=== PATIENT | female | born 1975 | race Hispanic/Latino ===

== ENCOUNTER 2018-03-20 15:38 | Observation (INO) | payer OTHER ==
[2018-03-20 15:38] VITALS: BMI 22.8
[2018-03-20 15:50] VITALS: O2SAT 99
[2018-03-20] MEDS ORDERED: Sodium Chloride 0.9% 1,000 ML IV STA (16:37)
[2018-03-20 16:47] LABS: BASO % 0.6 % (0.0-2.0); EOS # 0.1 K/uL (0.0-0.7); EOS % 1.6 % (0.0-4.0); HEMOGLOBIN 11.7 g/dL (12.0-16.0); LYMPH % 14.7 % (20.0-40.0); MEAN CELL VOLUME 92.9 fl (81.0-99.0); MEAN CORPUSCULAR HEMOGLOBIN 30.9 pg (27.0-31.0); MEAN CORPUSCULAR HGB CONC 33.3 g/dL (33.0-37.0); MEAN PLATELET VOLUME 8.6 fl (7.2-11.7); MONO # 0.6 K/uL (0.0-0.8); NEUT # 4.8 K/uL (1.8-7.0); NEUT % 74.1 % (50.0-75.0); RBC 3.8 Mil/uL (3.80-5.20); WHITE BLOOD COUNT 6.5 K/uL (4.8-10.8)
[2018-03-20 16:49] LABS: SQUAMOUS EPITHIAL 15 /hpf (0-5); URINE BACTERIA RARE (<OCC); URINE BILIRUBIN NEGATIVE (NEGATIVE); URINE BLOOD NEGATIVE (NEGATIVE); URINE CLARITY CLOUDY (Clear); URINE COLOR YELLOW (YELLOW); URINE GLUCOSE (UA) NEG (Normal); URINE LEUKOCYTE ESTERASE NEG Leu/uL (Negative); URINE PROTEIN 30 mg/dL (NEGATIVE); URINE UROBILINOGEN 0.2-1.0 mg/dL (0.2-1.0)
[2018-03-20 16:54] LABS: HCG,QUALITATIVE URINE NEGATIVE (NEGATIVE)
[2018-03-20 16:56] LABS: ALB/GLOB RATIO 1.6 (1.0-2.1); ALBUMIN 3.9 g/dL (3.5-5.0); ALT/SGPT 22 U/L (9-52); AST/SGOT 17 U/L (14-36); BLOOD UREA NITROGEN 7 mg/dl (7-17); CALCIUM 9.1 mg/dL (8.4-10.2); GFR NON-AFRICAN AMERICAN > 60; LIPASE 166 U/L (23-300)
[2018-03-20 16:57] LABS: VENOUS BLOOD GAS BASE EXCESS -0.3 mmol/L (0.0-2.0); VENOUS BLOOD GAS PCO2 38 mmHg (40-60); VENOUS BLOOD GAS PO2 30 mm/Hg (30-55); VENOUS BLOOD PH 7.41 (7.32-7.43)
[2018-03-20 17:01] LABS: INR 0.9; PROTHROMBIN TIME 10.3 Seconds (9.8-13.1)
[2018-03-20 17:03] LABS: PARTIAL THROMBOPLASTIN TIME 29.3 Seconds (25.6-37.1)
--- NOTE | 2018-03-20 18:04 | ED PDOC ---
HPI: Abdomen Time Seen by Provider: 03/20/18 16:36 Chief Complaint (Nursing): Abdominal Pain Chief Complaint (Provider): abdominal pain History Per: Patient History/Exam Limitations: no limitations Onset/Duration Of Symptoms: Hrs (today) Current Symptoms Are (Timing): Still Present Associated Symptoms: Chills, Nausea, Vomiting Additional Complaint(s): Radha Live is a 42 year old female, with no significant past medical history, who presents to the emergency department complaining of a worsening abdominal pain associated with vomiting. Patient states symptoms have lasted 10 days. She went to see her PMD at Dr. Heath at [facility] and went for an outpatient CT. She states she has not received the results yet. She is unable to keep anything down and states the worsening pain is located on right side. Patient reports feeling chills but is unsure if she has a fever. She denies any other medical complaints. LMP beginning of February. PDM: Roberto Heath Past Medical History Reviewed: Historical Data, Nursing Documentation, Vital Signs Vital Signs: Last Vital Signs Temp 97.9 F 03/21/18 16:10 Pulse 68 03/21/18 16:10 Resp 18 03/21/18 16:10 BP 117/75 03/21/18 16:10 Pulse Ox 99 03/21/18 16:10 - Medical History PMH: No Chronic Diseases - Surgical History Surgical History: No Surg Hx - Family History Family History: States: Unknown Family Hx - Home Medications Home Medications: Ambulatory Orders Medication Instructions Recorded No Known Home Med 03/20/18 - Allergies Allergies/Adverse Reactions: Allergies Allergy/AdvReac Type Severity Reaction Status Date / Time No Known Allergies Allergy Verified 03/20/18 15:48 Review of Systems ROS Statement: Except As Marked, All Systems Reviewed And Found Negative Constitutional: Positive for: Chills. Negative for: Fever Gastrointestinal: Positive for: Nausea, Vomiting, Abdominal Pain Physical Exam - Reviewed Nursing Documentation Reviewed: Yes Vital Signs Reviewed: Yes - Physical Exam Appears: Positive for: No Acute Distress Head Exam: Positive for: ATRAUMATIC, NORMAL INSPECTION, NORMOCEPHALIC Skin: Positive for: Normal Color, Warm, Dry Eye Exam: Positive for: Normal appearance, EOMI, PERRL Neck: Positive for: Painless ROM Cardiovascular/Chest: Positive for: Regular Rate, Rhythm. Negative for: Murmur Respiratory: Positive for: Normal Breath Sounds. Negative for: Respiratory Distress Gastrointestinal/Abdominal: Positive for: Tenderness (mild tenderness to palpation of RUQ) Back: Positive for: Normal Inspection. Negative for: L CVA Tenderness, R CVA Tenderness Extremity: Positive for: Normal ROM (upper and lower extremities). Negative for : Deformity, Swelling Neurologic/Psych: Positive for: Alert, Oriented. Negative for: Motor/Sensory Deficits - Laboratory Results Result Diagrams: 03/20/18 16:39 03/21/18 06:30 - ECG O2 Sat by Pulse Oximetry: 99 (RA) Pulse Ox Interpretation: Normal Medical Decision Making Medical Decision Making: Time: 16:36 Initial Impression: Work up for abdominal infection. Gastroenteritis vs cholecystitis. Will give Zofran, morphine, IV fluids and reassess patient. Initial Plan: --VBG --EKG --CMP --Lipase --CBC w/ differential --PTT --PT --Morphine 2 mg IVP --Sodium Chloride 1,000 ml IV 1,000 mls/hr --Zofran Inj 4 mg IVP --Urinalysis --Reevaluation 18:35 -Contacted Dr. Oconnor to see if he could access CT results from outpatient radiology as ordered through the [facility] system. He looked and there was no results. -Patient reports mild improvement with 2nd dose of morphine. Ordered acute abdominal ultrasound. ----- Scribe Attestation: Documented by George De La Torre, acting as a scribe for Mariah Vila MD. Provider Scribe Attestation: All medical record entries made by the Scribe were at my direction and personally dictated by me. I have reviewed the chart and agree that the record accurately reflects my personal performance of the history, physical exam, medical decision making, and the department course for this patient. I have also personally directed, reviewed, and agree with the discharge instructions and disposition. Disposition - Clinical Impression Clinical Impression: Abdominal pain - Disposition Disposition: Transfer of Care Disposition Time: 19:00 (Signed out to Dr. Phelps pending US results.) Condition: FAIR
[2018-03-20] MEDS ORDERED: Potassium CL 10 MEQ/50 ML 50 ML IVPB STA (18:40)
[2018-03-20] MEDS ORDERED: Potassium CL 10 MEQ/50 ML 50 ML ONE (19:00)
--- NOTE | 2018-03-20 19:33 | ED PDOC ---
- Laboratory Results Result Diagrams: 03/20/18 16:39 03/20/18 16:39 - ECG O2 Sat by Pulse Oximetry: 99 (RA) Medical Decision Making Medical Decision Makin:00 -Patient endorsed to provider by Dr. Vila, pending ultrasound. 17:41 Abdomen Ultrasound FINDINGS: Liver: There is borderline hepatomegaly with liver length is 16.8 cm. The hepatic parenchyma is mildly echogenic possibly due to diffuse fatty liver. Gallbladder: Normal. No gallstones. There is not gallbladder wall thickening. Negative sonographic Burk's sign. Common bile duct: Normal. No stones. No dilation. Pancreas: Normal. No ductal dilation. Kidneys: Normal. No mass. No hydronephrosis. Spleen: Normal. No splenomegaly. Stomach: In the area of pain in the epigastric region the stomach is visualized and there appears to be significant gastric wall thickening, cannot exclude gastritis. Aorta: Normal. No aneurysm. Inferior vena cava: Normal. IMPRESSION: In the area of pain in the epigastric region the stomach is visualized and there appears to be significant gastric wall thickening, cannot exclude gastritis. 21:50 -Patient treated with IV protonix with no improvement of symptoms. Patient still reports a persistent abdominal pain. Pt. will be placed in observation, referred to Dr. Oconnor. Diagnosis of intractable abdominal pain and gastritis Disposition Discussed With : Mayco Martinez - Clinical Impression Clinical Impression: Abdominal pain - POA Present On Arrival: None - Disposition Disposition: Hospitalized as Observation Patient Disposition Time: 21:50 Condition: FAIR
[2018-03-20] MEDS ORDERED: Sucralfate 1 gm/10 ml Oral Susp UD PO STA (20:11)
[2018-03-20] MEDS ORDERED: Sucralfate 1 gm/10 ml Oral Susp UD ONE ×2 (20:21→20:38)
[2018-03-20] MEDS: Dextrose 5%/0.45% NS 1,000 ML IV SCH (21:56)
[2018-03-21] MEDS: Dextrose 5%/0.45% NS 1,000 ML IV SCH ×2 (05:46→12:00)
[2018-03-21 07:40] LABS: ALB/GLOB RATIO 1.4 (1.0-2.1); ALBUMIN 3.1 g/dL (3.5-5.0); ALT/SGPT 15 U/L (9-52); AST/SGOT 16 U/L (14-36); BLOOD UREA NITROGEN 3 mg/dl (7-17); CALCIUM 8.7 mg/dL (8.4-10.2); GFR NON-AFRICAN AMERICAN > 60
[2018-03-21] MEDS: Sucralfate 1 gm/10 ml Oral Susp UD PO SCH ×3 (09:10→16:16)
--- NOTE | 2018-03-21 09:35 | US ---
Date of service: 03/20/2018 HISTORY: diffuse abd pain. worse RUQ and flanks BL COMPARISON: None. TECHNIQUE: Sonographic evaluation of the abdomen. FINDINGS: LIVER: Measures cm. Normal echogenicity of the liver parenchyma. No mass. No intrahepatic bile duct dilatation. GALLBLADDER: Unremarkable. No gallstones. COMMON BILE DUCT: Measures mm. No stones. No dilatation. PANCREAS: Unremarkable as visualized. No mass. No ductal dilatation. RIGHT KIDNEY: Measures cm. Normal echogenicity. No calculus, mass, or hydronephrosis. LEFT KIDNEY: Measures cm. Normal echogenicity. No calculus, mass, or hydronephrosis. SPLEEN: Normal in size and contour. No mass. AORTA: No aneurysmal dilatation. IVC: Unremarkable. OTHER FINDINGS: Question gastric wall thickening. Correlate for gastritis. IMPRESSION: Question gastric wall thickening. Correlate for gastritis.
--- NOTE | 2018-03-21 12:56 | CP.PCM.HP ---
History of Present Illness - History of Present Illness History of Present Illness: Radha Live is a 42 year old female, with no significant past medical history, who presents to the emergency department complaining of a worsening abdominal pain associated with vomiting. Patient states symptoms have lasted 10 days. She went to see her PMD at Dr. Heath at [place] [facility] [address] and went for an outpatient CT. She states she has not received the results yet. She is unable to keep anything down and states the worsening pain is located on right side. Patient reports feeling chills but is unsure if she has a fever. She denies any other medical complaints. LMP beginning of February. Present on Admission - Present on Admission Any Indicators Present on Admission: No Review of Systems - Constitutional Constitutional: absent: As Per HPI, Anorexia, Chills, Daytime Sleepiness, Excessive Sweating, Fatigue, Fever, Frequent Falls, Headache, Increased Appetite , Lethargy, Malaise, Night Sweats, Snoring, Sleep Apnea, Weight Gain, Weight Loss, Weakness, Other - EENT Eyes: absent: As Per HPI, Blind Spots, Blurred Vision, Change in Vision, Decreased Night Vision, Diplopia, Discharge, Dry Eye, Exophthalmos, Floaters, Irritation, Itchy Eyes, Loss of Peripheral Vision, Pain, Photophobia, Requires Corrective Lenses, Sees Flashes, Spots in Vision, Tunnel Vision, Other Visual Disturbances, Loss of Vision, Other - Cardiovascular Cardiovascular: absent: As Per HPI, Acrocyanosis, Chest Pain, Chest Pain at Rest , Chest Pain with Activity, Claudication, Diaphoresis, Dyspnea, Dyspnea on Exertion, Edema, Irregular Heart Rhythm, Pain Radiating to Arm/Neck/Jaw, Leg Edema, Leg Ulcers, Lightheadedness, Orthopnea, Palpitations, Paroxysmal Nocturnal Dyspnea, Pedal Edema, Radiating Pain, Rapid Heart Rate, Slow Heart Rate, Syncope, Other - Respiratory Respiratory: absent: As Per HPI, Cough, Dyspnea, Hemoptysis, Dyspnea on Exertion , Wheezing, Snoring, Stridor, Pain on Inspiration, Chest Congestion, Excessive Mucous Production, Change in Mucous Color, Pain with Coughing, Other - Gastrointestinal Gastrointestinal: Abdominal Pain, Vomiting - Musculoskeletal Musculoskeletal: absent: As Per HPI, Abnormal Gait, Arthralgias, Atrophy, Back Pain, Deformity, Joint Swelling, Limited Range of Motion, Loss of Height, Muscle Cramps, Muscle Weakness, Myalgias, Neck Pain, Numbness, Radiating Pain into Limb, Stiffness, Tingling, Other - Neurological Neurological: absent: As Per HPI, Abnormal Gait, Abnormal Hearing, Abnormal Movements, Abnormal Speech, Behavioral Changes, Burning Sensations, Confusion, Convulsions, Disequilibrium, Dizziness, Numbness, Focal Weakness, Frequent Falls , Headaches, Lack of Coordination, Loss of Vision, Memory Loss, Paresthesias, Radicular Pain, Restless Legs, Sensory Deficit, Syncope, Tingling, Tremor, Vertigo, Weakness, Other Visual Disturbances, Other Past Patient History - Past Medical History & Family History Past Medical History?: Yes - Past Social History Smoking Status: Never Smoked - CARDIAC Hx Cardiac Disorders: No - PULMONARY Hx Respiratory Disorders: No - NEUROLOGICAL Hx Neurological Disorder: No - HEENT Hx HEENT Problems: No - RENAL Hx Chronic Kidney Disease: No - ENDOCRINE/METABOLIC Hx Endocrine Disorders: No - HEMATOLOGICAL/ONCOLOGICAL Hx Blood Disorders: No Hx AIDS: No Hx Human Immunodeficiency Virus (HIV): No - INTEGUMENTARY Hx Dermatological Problems: No - MUSCULOSKELETAL/RHEUMATOLOGICAL Hx Musculoskeletal Disorders: No Hx Falls: No - GASTROINTESTINAL Hx Gastrointestinal Disorders: Yes Hx Nausea: Yes Hx Vomiting: Yes - GENITOURINARY/GYNECOLOGICAL Hx Genitourinary Disorders: Yes () - PSYCHIATRIC Hx Psychophysiologic Disorder: Yes (post depression) Hx Substance Use: No - SURGICAL HISTORY Hx Surgeries: Yes Hx Section: Yes - ANESTHESIA Hx Anesthesia: Yes Hx Anesthesia Reactions: No Hx Malignant Hyperthermia: No Meds Allergies/Adverse Reactions: Allergies Allergy/AdvReac Type Severity Reaction Status Date / Time No Known Allergies Allergy Verified 03/20/18 15:48 Physical Exam - Head Exam Head Exam: NORMAL INSPECTION - Eye Exam Eye Exam: EOMI Pupil Exam: NORMAL ACCOMODATION - ENT Exam ENT Exam: Mucous Membranes Moist - Respiratory Exam Respiratory Exam: Clear to Auscultation Bilateral, NORMAL BREATHING PATTERN - Cardiovascular Exam Cardiovascular Exam: REGULAR RHYTHM, +S1, +S2 - GI/Abdominal Exam GI & Abdominal Exam: Normal Bowel Sounds, Soft - Neurological Exam Neurological exam: Alert, Oriented x3 Results - Vital Signs Recent Vital Signs: Last Vital Signs Temp 99.0 F 03/21/18 07:40 Pulse 70 03/21/18 07:40 Resp 19 03/21/18 07:40 BP 107/72 03/21/18 07:40 Pulse Ox 99 09/02/18 07:40 - Labs Result Diagrams: 03/20/18 16:39 03/21/18 06:30 Labs: Laboratory Results - last 24 hr 03/20/18 03/20/18 03/20/18 16:39 16:39 16:39 WBC 6.5 RBC 3.80 Hgb 11.7 L Hct 35.3 MCV 92.9 D MCH 30.9 MCHC 33.3 RDW 13.0 Plt Count 196 MPV 8.6 Neut % (Auto) 74.1 Lymph % (Auto) 14.7 L [place] % (Auto) 9.0 Eos % (Auto) 1.6 Baso % (Auto) 0.6 Neut # (Auto) 4.8 Lymph # (Auto) 1.0 [place] # (Auto) 0.6 Eos # (Auto) 0.1 Baso # (Auto) 0.0 PT INR APTT pO2 VBG pH VBG pCO2 VBG HCO3 VBG Total CO2 VBG O2 Sat (Calc) VBG Base Excess VBG Potassium Glucose Lactate FiO2 Crit Value Called To Crit Value Called By Crit Value Read Back Blood Gas Notified Time Sodium 136 Potassium 3.5 L Chloride 101 Carbon Dioxide 28 Anion Gap 11 BUN 7 Creatinine 0.7 Est GFR ( Amer) > 60 Est GFR (Non-Af Amer) > 60 Random Glucose 105 Calcium 9.1 Total Bilirubin 0.2 AST 17 ALT 22 Alkaline Phosphatase 46 Total Protein 6.4 Albumin 3.9 Globulin 2.5 Albumin/Globulin Ratio 1.6 Lipase 166 Venous Blood Potassium Urine Color Yellow Urine Clarity Cloudy Urine pH 6.0 Ur Specific [place] 1.031 H Urine Protein 30 Urine Glucose (UA) Neg Urine Ketones Negative Urine Blood Negative Urine Nitrate Negative Urine Bilirubin Negative Urine Urobilinogen 0.2-1.0 Ur Leukocyte Esterase Neg Urine RBC (Auto) 2 Urine Microscopic WBC 3 Ur Squamous Epith Cells 15 H Urine Bacteria Rare Urine HCG, Qual Negative 03/20/18 03/20/18 03/21/18 16:39 16:49 06:30 WBC RBC Hgb Hct MCV MCH MCHC RDW Plt Count MPV Neut % (Auto) Lymph % (Auto) [place] % (Auto) Eos % (Auto) Baso % (Auto) Neut # (Auto) Lymph # (Auto) [place] # (Auto) Eos # (Auto) Baso # (Auto) PT 10.3 INR 0.9 APTT 29.3 pO2 30 VBG pH 7.41 VBG pCO2 38 L VBG HCO3 23.6 VBG Total CO2 25.3 VBG O2 Sat (Calc) 63.6 VBG Base Excess -0.3 L VBG Potassium 2.5 L* Glucose 88 Lactate 0.4 L FiO2 21.0 Crit Value Called To magui Vila md Crit Value Called By Modesta pace Crit Value Read Back Y Blood Gas Notified Time 1657 Sodium 138.0 140 Potassium 3.7 Chloride 109.0 H 107 Carbon Dioxide 28 Anion Gap 9 L BUN 3 L Creatinine 0.7 Est GFR ( Amer) > 60 Est GFR (Non-Af Amer) > 60 Random Glucose 102 Calcium 8.7 Total Bilirubin 0.1 L AST 16 ALT 15 Alkaline Phosphatase 37 L Total Protein 5.3 L Albumin 3.1 L D Globulin 2.2 Albumin/Globulin Ratio 1.4 Lipase Venous Blood Potassium 2.5 L* Urine Color Urine Clarity Urine pH Ur Specific [place] Urine Protein Urine Glucose (UA) Urine Ketones Urine Blood Urine Nitrate Urine Bilirubin Urine Urobilinogen Ur Leukocyte Esterase Urine RBC (Auto) Urine Microscopic WBC Ur Squamous Epith Cells Urine Bacteria Urine HCG, Qual Assessment & Plan - Assessment and Plan (Free Text) Assessment: intractable vomiting/abdominal pain Plan: intractable vomiting/abd pain pain has improved no nausea advance diet cont carafate/zofran
--- NOTE | 2018-03-21 12:58 | CP.PCM.DIS ---
Provider - Provider Date of Admission: 03/20/18 21:42 Attending physician: MD catia Solis MD Time Spent in preparation of Discharge (in minutes): 30 Diagnosis - Discharge Diagnosis (1) Vomiting Status: Acute Hospital Course - Lab Results Lab Results: Most Recent Lab Values WBC 6.5 K/uL (4.8-10.8) 03/20/18 16:39 RBC 3.80 Mil/uL (3.80-5.20) 03/20/18 16:39 Hgb 11.7 g/dL (12.0-16.0) L 03/20/18 16:39 Hct 35.3 % (34.0-47.0) 03/20/18 16:39 MCV 92.9 fl (81.0-99.0) D 03/20/18 16:39 MCH 30.9 pg (27.0-31.0) 03/20/18 16:39 MCHC 33.3 g/dL (33.0-37.0) 03/20/18 16:39 RDW 13.0 % (11.5-14.5) 03/20/18 16:39 Plt Count 196 K/uL (130-400) 03/20/18 16:39 MPV 8.6 fl (7.2-11.7) 03/20/18 16:39 Neut % (Auto) 74.1 % (50.0-75.0) 03/20/18 16:39 Lymph % (Auto) 14.7 % (20.0-40.0) L 03/20/18 16:39 [place] % (Auto) 9.0 % (0.0-10.0) 03/20/18 16:39 Eos % (Auto) 1.6 % (0.0-4.0) 03/20/18 16:39 Baso % (Auto) 0.6 % (0.0-2.0) 03/20/18 16:39 Neut # (Auto) 4.8 K/uL (1.8-7.0) 03/20/18 16:39 Lymph # (Auto) 1.0 K/uL (1.0-4.3) 03/20/18 16:39 [place] # (Auto) 0.6 K/uL (0.0-0.8) 03/20/18 16:39 Eos # (Auto) 0.1 K/uL (0.0-0.7) 03/20/18 16:39 Baso # (Auto) 0.0 K/uL (0.0-0.2) 03/20/18 16:39 PT 10.3 Seconds (9.8-13.1) 03/20/18 16:39 INR 0.9 03/20/18 16:39 APTT 29.3 Seconds (25.6-37.1) 03/20/18 16:39 pO2 30 mm/Hg (30-55) 03/20/18 16:49 VBG pH 7.41 (7.32-7.43) 03/20/18 16:49 VBG pCO2 38 mmHg (40-60) L 03/20/18 16:49 VBG HCO3 23.6 mmol/L 03/20/18 16:49 VBG Total CO2 25.3 mmol/L (22-28) 03/20/18 16:49 VBG O2 Sat (Calc) 63.6 % (40-65) 03/20/18 16:49 VBG Base Excess -0.3 mmol/L (0.0-2.0) L 03/20/18 16:49 VBG Potassium 2.5 mmol/L (3.6-5.2) L* 03/20/18 16:49 Sodium 138.0 mmol/L (132-148) 03/20/18 16:49 Chloride 109.0 mmol/L (98-107) H 03/20/18 16:49 Glucose 88 mg/dL (65-105) 03/20/18 16:49 Lactate 0.4 mmol/L (0.7-2.1) L 03/20/18 16:49 FiO2 21.0 % 03/20/18 16:49 Crit Value Called To magui Vila md 03/20/18 16:49 Crit Value Called By Modesta pace 03/20/18 16:49 Crit Value Read Back Y 03/20/18 16:49 Blood Gas Notified Time 4850 03/20/18 16:49 Sodium 140 mmol/l (132-148) 03/21/18 06:30 Potassium 3.7 MMOL/L (3.6-5.0) 03/21/18 06:30 Chloride 107 mmol/L (98-107) 03/21/18 06:30 Carbon Dioxide 28 mmol/L (22-30) 03/21/18 06:30 Anion Gap 9 (10-20) L 03/21/18 06:30 BUN 3 mg/dl (7-17) L 03/21/18 06:30 Creatinine 0.7 mg/dl (0.7-1.2) 03/21/18 06:30 Est GFR ( Amer) > 60 03/21/18 06:30 Est GFR (Non-Af Amer) > 60 03/21/18 06:30 Random Glucose 102 mg/dL (65-105) 03/21/18 06:30 Calcium 8.7 mg/dL (8.4-10.2) 03/21/18 06:30 Total Bilirubin 0.1 mg/dl (0.2-1.3) L 03/21/18 06:30 AST 16 U/L (14-36) 03/21/18 06:30 ALT 15 U/L (9-52) 03/21/18 06:30 Alkaline Phosphatase 37 U/L (38-126) L 03/21/18 06:30 Total Protein 5.3 G/DL (6.3-8.2) L 03/21/18 06:30 Albumin 3.1 g/dL (3.5-5.0) L D 03/21/18 06:30 Globulin 2.2 gm/dL (2.2-3.9) 03/21/18 06:30 Albumin/Globulin Ratio 1.4 (1.0-2.1) 03/21/18 06:30 Lipase 166 U/L (23-300) 03/20/18 16:39 Venous Blood Potassium 2.5 mmol/L (3.6-5.2) L* 03/20/18 16:49 Urine Color Yellow (YELLOW) 03/20/18 16:39 Urine Clarity Cloudy (Clear) 03/20/18 16:39 Urine pH 6.0 (5.0-8.0) 03/20/18 16:39 Ur Specific [place] 1.031 (1.003-1.030) H 03/20/18 16:39 Urine Protein 30 mg/dL (NEGATIVE) 03/20/18 16:39 Urine Glucose (UA) Neg mg/dL (Normal) 03/20/18 16:39 Urine Ketones Negative mg/dL (NEGATIVE) 03/20/18 16:39 Urine Blood Negative (NEGATIVE) 03/20/18 16:39 Urine Nitrate Negative (NEGATIVE) 03/20/18 16:39 Urine Bilirubin Negative (NEGATIVE) 03/20/18 16:39 Urine Urobilinogen 0.2-1.0 mg/dL (0.2-1.0) 03/20/18 16:39 Ur Leukocyte Esterase Neg [place]/uL (Negative) 03/20/18 16:39 Urine RBC (Auto) 2 /hpf (0-3) 03/20/18 16:39 Urine Microscopic WBC 3 /hpf (0-5) 03/20/18 16:39 Ur Squamous Epith Cells 15 /hpf (0-5) H 03/20/18 16:39 Urine Bacteria Rare (<OCC) 03/20/18 16:39 Urine HCG, Qual Negative (NEGATIVE) 03/20/18 16:39 Discharge Exam - Head Exam Head Exam: NORMAL INSPECTION - ENT Exam ENT Exam: Mucous Membranes Moist - Respiratory Exam Respiratory Exam: Clear to PA & Lateral, NORMAL BREATHING PATTERN - Cardiovascular Exam Cardiovascular Exam: REGULAR RHYTHM, +S1, +S2 - GI/Abdominal Exam GI & Abdominal Exam: Normal Bowel Sounds, Soft - Neurological Exam Neurological exam: Alert, Oriented x3 Discharge Plan - Follow Up Plan Condition: FAIR Disposition: HOME/ ROUTINE Instructions: Acute Abdominal Pain (DC), Acute Abdominal Pain (GEN) Additional Instructions: abdominal pain/vomiting d/c home cont maalox/carafate f/u pmd in 2 days
[2018-03-21 16:10] VITALS: BP 117/75; PULSE 68; RESP 18; TEMP 97.9
--- NOTE | 2018-03-21 17:51 | CARD ---
APPROVED REPORT Date of service: 03/20/2018 EKG Measurement Heart [id number] <Conclusion> Sinus bradycardia Possible Left atrial enlargement Left ventricular hypertrophy with repolarization abnormality Abnormal ECG
== END 2018-03-21 18:49 | disposition home or self-care (01) ==
LOC: H.ER 15:38 → H.ERHOLD 21:42 → H.MEDSURG1 23:08
PROVIDERS: ADMIT Family Medicine; ATTEND Family Medicine
DX: R11.10 Vomiting, unspecified (principal); F45.9 Somatoform disorder, unspecified
CPT/HCPCS: 36415; 76700; 80053; 81003; 81025; 82803; 83690; 84703; 85025; 85610; 85730; 93005; 96360; 96365; 96374; 99283; C9113; G0378; J2270; J2405; J3480; J7030; J7042